=== PATIENT | female | born 1970 | race Caucasian/White ===

== ENCOUNTER → 2017-03-07 | Outpatient (CLI) | payer BC ==
--- NOTE | 2017-03-07 16:14 | MY ---
EXAMINATION: Bilateral digital mammography utilizing CAD. HISTORY: Screening exam. Comparison is made to previous studies dated 11/10/2015, 10/31/2014. FINDINGS: Bilateral extremely dense breast tissue. No suspicious calcifications, masses or marcello ectural distortions. No pathologic appearing lymph nodes, no abnormal skin thickening or nipple in version. CAD highlighted regions appear normal at this time. IMPRESSION: BI-RADS category I - negative mammogram. Continued screening according to ACR-ACS gu idelines suggested. THE FALSE-NEGATIVE RATE OF MAMMOGRAM IS APPROXIMATELY 10%. MANAGEMENT OF A PALPABLE ABNORMALITY MUST BE BASED UPON CLINICAL GROUNDS. SENSITIVITY FOR DETECTION OF ABNORMALITIES IN DENSE BREASTS IS LOW. NOTE: A letter will be sent to the patient regarding findings. [facility] -- JOSEFINA Stevens [phone] - FAX [phone]
== END ==
LOC: MW.MAM 09:00
PROVIDERS: ATTEND Obstetrics & Gynecology
DX: Z12.31 Encounter for screening mammogram for malignant neoplasm of breast (principal)
CPT/HCPCS: G0202; G0202-26

== ENCOUNTER 2017-04-04 07:44 | Day surgery (SDC) | payer BC ==
[2017-04-03 12:38] LABS: CHLORIDE,CL 106 mmol/L (98-110); SODIUM,NA 140 mmol/L (136-146)
[~2017-04-04 07:44] MED LIST: Bupivacaine 0.25% 10 ML SDV ONE; Fluorescein 5 ML Vial ONE; Lidocaine 2% 5 ML SDV ONE; Methylene Blue 50 MG/10 ML Ampule IV ONE; Midazolam 1 MG/ML 2 ML SDV ONE; Neostigmine Methylsulfate 1 MG/ML 5 ML Syringe ONE; Ondansetron 4 MG/2 ML SDV ONE; Propofol 200 MG/20 ML SDV ONE; Sodium Chloride 0.9% 20 ML ONE; fentaNYL 250 MCG/5 ML SDV ONE
--- NOTE | 2017-04-04 08:17 | PCM.PREANE ---
Preanesthetic Assessment - Anesthesia/Transfusion/Family Hx Anesthesia History: Prior Anesthesia Without Reaction Family History of Anesthesia Reaction: No Transfusion History: Prior Transfusion Without Reaction Intubation History: Unknown - Review of Systems General: No Symptoms Pulmonary: No Symptoms Cardiovascular: No Symptoms Gastrointestinal: No symptoms Neurological: No Symptoms Other: Reports: None - Physical Assessment O2 Sat by Pulse Oximetry: 99 Respiratory Rate: 16 Vital Signs: Last Vital Signs Temp 36.3 C 04/04/17 07:54 Pulse 90 04/04/17 07:54 Resp 16 04/04/17 07:54 BP 133/80 04/04/17 07:54 Pulse Ox 99 04/04/17 07:54 Height: 1.64 m Weight: 79.832 kg ASA Class: 2 Mental Status: Alert & Oriented x3 Airway Class: Mallampati = 2 Dentition: Reports: Normal Dentition Thyro-Mental Finger Breadths: 3 Mouth Opening Finger Breadths: 2 ROM/Head Extension: Full Lungs: Clear to auscultation, Normal respiratory effort Cardiovascular: Regular Rate, Regular Rhythm - Lab Values: Laboratory Last Values WBC 6.46 K/uL (4.0-11.0) 04/03/17 12:04 RBC 4.34 M/uL (4.30-5.90) 04/03/17 12:04 Hgb 12.9 g/dL (12.0-16.0) 04/03/17 12:04 Hct 39.9 % (36.0-46.0) 04/03/17 12:04 MCV 91.9 fL (80.0-98.0) 04/03/17 12:04 MCH 29.7 pg (27.0-32.0) 04/03/17 12:04 MCHC 32.3 g/dL (31.0-37.0) 04/03/17 12:04 RDW Std Deviation 50.5 fl (28.0-62.0) 04/03/17 12:04 RDW Coeff of Lela 15 % (11.0-15.0) 04/03/17 12:04 Plt Count 224 K/uL (150-400) 04/03/17 12:04 MPV 10.00 fL (7.40-12.00) 04/03/17 12:04 Nucleated RBC % 0.0 /100WBC 04/03/17 12:04 Nucleated RBCs # 0 K/uL 04/03/17 12:04 Sodium 140 mmol/L (136-146) 04/03/17 12:04 Potassium 4.4 mmol/L (3.5-5.1) 04/03/17 12:04 Chloride 106 mmol/L (98-110) 04/03/17 12:04 Carbon Dioxide 26 mmol/L (21-31) 04/03/17 12:04 BUN 10 mg/dL (6.0-23.0) 04/03/17 12:04 Creatinine 0.8 mg/dL (0.6-1.5) 04/03/17 12:04 Est Cr Clr Drug Dosing 77.47 mL/min 04/03/17 12:04 Estimated GFR (MDRD) > 60.0 ml/min 04/03/17 12:04 Glucose 84 mg/dL (60-110) 04/03/17 12:04 Calcium 8.8 mg/dL (8.8-10.8) 04/03/17 12:04 HCG, Quant < 1.2 mIU/mL 04/03/17 12:04 Blood Type B NEGATIVE 04/03/17 12:04 Antibody Screen NEGATIVE 04/03/17 12:04 - Allergies Allergies/Adverse Reactions: Allergies Allergy/AdvReac Type Severity Reaction Status Date / Time latex Allergy Rash Verified 03/30/17 15:48 baby wipes Allergy Rash Uncoded 03/30/17 15:48 - Blood Blood Available: No - Anesthesia Plan Pre-Op Medication Ordered: None - Acknowledgements Anesthesia Type Planned: General Anesthesia Pt an Appropriate Candidate for the Planned Anesthesia: Yes Alternatives and Risks of Anesthesia Discussed w Pt/Guardian: Yes Pt/Guardian Understands and Agrees with Anesthesia Plan: Yes PreAnesthesia Questionnaire HEENT History: Reports: Other (See Below) Other HEENT History: wears glasses, has Keratconus Cardiovascular History: Reports: High Cholesterol, Hypertension Respiratory History: Reports: None Gastrointestinal History: Reports: Hemorrhoids Genitourinary History: Reports: Other (See Below) Other Genitourinary History: has overactive bladder [employer] History: Reports: Dysfunctional Uterine Bleeding, Endometrial Ablation, Endometriosis Musculoskeletal History: Reports: Other (See Below) Other Musculoskeletal History: chronic right hip pain Neurological History: Reports: None Psychiatric History: Reports: Anxiety, Depression Endocrine/Metabolic History: Reports: None Hematologic History: Reports: Anemia Immunologic History: Reports: None Oncologic (Cancer) History: Reports: None Dermatologic History: Reports: Other (See Below) Other Dermatologic History: occasional rash in antecubital area - Past Surgical History Head Surgeries/Procedures: Reports: None HEENT Surgical History: Reports: None Cardiovascular Surgical History: Reports: None Respiratory Surgical History: Reports: None GI Surgical History: Reports: None Female Surgical History: Reports: Section (x2), Cervical Conization , Endometrial Ablation, Tubal Ligation, Other (See Below) Other Female Surgeries/Procedures: laparoscopy for ablation of endometrosis Endocrine Surgical History: Reports: None Neurological Surgical History: Reports: None Dermatological Surgical History: Reports: None Other Surgical History Comment: rt.CTR - SUBSTANCE USE Smoking Status *Q: Never Smoker Recreational Drug Use History: No - HOME MEDS Home Medications: Home Meds Ferrous Sulfate 325 mg PO BID 03/30/17 [History] Tolterodine Tartrate [Tolterodine Tartrate ER] 4 mg PO DAILY 03/30/17 [History] Venlafaxine [Effexor XR] 225 mg PO DAILY 03/30/17 [History] amLODIPine [Norvasc] 5 mg PO DAILY 03/30/17 [History] atorvaSTATin Calcium [Atorvastatin Calcium] 80 mg PO DAILY 03/30/17 [History] valACYclovir [Valtrex] 1 gm PO Q8H PRN 03/30/17 [History] - CURRENT (IN HOUSE) MEDS Current Meds: Current Medications Discontinued Medications Bupivacaine HCl (Sensorcaine-Mpf 0.25%) Confirm Administered Dose 20 ml .ROUTE .STK-MED ONE Stop: 04/04/17 07:18 Fentanyl (Sublimaze) Confirm Administered Dose 250 mcg .ROUTE .STK-MED ONE Stop: 04/04/17 07:16 Fluorescein Sodium (Ak-Fluor) Confirm Administered Dose 5 ml .ROUTE .STK-MED ONE Stop: 04/04/17 07:19 Glycopyrrolate () Confirm Administered Dose 1 mg .ROUTE .STK-MED ONE Stop: 04/04/17 07:15 Sodium Chloride (Normal Saline) Confirm Administered Dose 20 mls @ as directed .ROUTE .STK-MED ONE Stop: 04/04/17 07:17 Lidocaine (Xylocaine-Mpf 2%) Confirm Administered Dose 5 ml .ROUTE .STK-MED ONE Stop: 04/04/17 07:15 Methylene Blue (Provayblue) Confirm Administered Dose 50 mg IV .STK-MED ONE Stop: 04/04/17 07:19 Midazolam HCl (Versed 1 Mg/Ml) Confirm Administered Dose 2 mg .ROUTE .STK-MED ONE Stop: 04/04/17 07:16 Neostigmine Methylsulfate (Neostigmine) Confirm Administered Dose 5 mg .ROUTE .STK-MED ONE Stop: 04/04/17 07:15 Ondansetron HCl (Zofran) Confirm Administered Dose 4 mg .ROUTE .STK-MED ONE Stop: 04/04/17 07:15 Propofol (Diprivan 20 Ml) Confirm Administered Dose 200 mg .ROUTE .STK-MED ONE Stop: 04/04/17 07:16 Vecuronium [place] (Vecuronium) Confirm Administered Dose 10 mg .ROUTE .STK-MED ONE Stop: 04/04/17 07:17
[2017-04-04] MEDS ORDERED: ceFAZolin 1 GM Vial ONE (09:34)
[2017-04-04] MEDS ORDERED: ePHEDrine 50 MG/ML SDV ONE (09:39)
[2017-04-04] MEDS ORDERED: Phenylephrine/Normal Saline 100 MCG/ML 10 ML Syringe ONE (09:43)
[2017-04-04] MEDS ORDERED: Furosemide 40 MG/4 ML VIAL ONE (10:04)
[2017-04-04] MEDS ORDERED: fentaNYL 100 MCG/2 ML SDV IVPUSH PRN (10:15)
[2017-04-04] MEDS ORDERED: fentaNYL 250 MCG/5 ML SDV ONE (10:29)
[2017-04-04] MEDS ORDERED: Morphine 2 MG/ML Syringe IVPUSH PRN (11:50)
[2017-04-04] MEDS ORDERED: Ketorolac 30 MG/ML SDV IVPUSH PRN (11:50)
[2017-04-04] MEDS ORDERED: Ondansetron 4 MG/2 ML SDV IVPUSH PRN (11:50)
[2017-04-04] MEDS ORDERED: Acetaminophen/oxyCODONE 325-5 MG Tab PO PRN ×2 (11:50)
[2017-04-04] MEDS ORDERED: Morphine 4 MG/ML Syringe IVPUSH PRN (11:50)
[2017-04-04] MEDS ORDERED: Ketorolac 30 MG/ML SDV IVPUSH ONE (11:50)
[2017-04-04] MEDS ORDERED: Promethazine 25 MG/ML SDV IM PRN (11:50)
--- NOTE | 2017-04-04 12:06 | PCM.OPNOTE ---
- General Post-Op/Procedure Note Date of Surgery/Procedure: 04/04/17 Operative Procedure(s): LAVH/bilateral salpingectomy/cystoscopy Pre Op Diagnosis: menometrorrhagia. uterine fibroids Post-Op Diagnosis: Same Anesthesia Technique: General ET tube Primary Surgeon: Argenis Fish Section Gang Worker: Cornelia Matos Fluid Replacement, Intraop: 2,500 EBL in mLs: 150 Complications: None Condition: Good Free Text/Narrative:: Dictation [id number]
--- NOTE | 2017-04-04 16:51 | PCM48HPAN ---
Post Anesthesia Note - EVALUATION WITHIN 48HRS OF ANESTHETIC Vital Signs in Normal Range: Yes Patient Participated in Evaluation: Yes Respiratory Function Stable: Yes Airway Patent: Yes Cardiovascular Function Stable: Yes Hydration Status Stable: Yes Pain Control Satisfactory: Yes Nausea and Vomiting Control Satisfactory: Yes Mental Status Recovered: Yes
--- NOTE | 2017-04-04 17:31 | PCM.SN ---
- Free Text/Narrative Note: Patient is sleepy, but pain is controlled. Denies nausea. Explained intraoperative findings and procedure. VS are stable. Continue postoperative cares.
[2017-04-05 05:27] LABS: CHLORIDE,CL 103 mmol/L (98-110); SODIUM,NA 138 mmol/L (136-146)
--- NOTE | 2017-04-05 07:02 | PCM.SURGPN ---
- General Info Date of Service: 04/05/17 POD#: 1 Functional Status: Reports: pain controlled, tolerating diet, ambulating - Review of Systems General: Denies: Fever, Weakness Pulmonary: Denies: shortness of breath Cardiovascular: Denies: Chest Pain, Palpitations, Lightheadedness Gastrointestinal: Denies: Nausea, Vomiting Genitourinary: Denies: flank pain Skin: Reports: no symptoms Psychiatric: Reports: no symptoms - Patient Data Vitals - most recent: Last Vital Signs Temp 36.4 C 04/05/17 04:00 Pulse 85 04/05/17 04:00 Resp 18 04/05/17 04:00 BP 122/64 04/05/17 04:00 Pulse Ox 92 L 04/05/17 04:00 Weight - most recent: 80 kg I&O - last 24 hours: Intake & Output 04/04/17 04/04/17 04/05/17 14:59 22:59 06:59 Intake Total 5300 300 1318 Output Total 240 223 4095 Balance 5120 -150 128 Lab Results last 24 hrs: Laboratory Results - last 24 hr 04/05/17 04/05/17 Range/Units 04:29 04:29 WBC 10.32 (4.0-11.0) K/uL RBC 3.81 L (4.30-5.90) M/uL Hgb 11.2 L (12.0-16.0) g/dL Hct 35.3 L (36.0-46.0) % MCV 92.7 (80.0-98.0) fL MCH 29.4 (27.0-32.0) pg MCHC 31.7 (31.0-37.0) g/dL RDW Std Deviation 51.2 (28.0-62.0) fl RDW Coeff of Lela 15 (11.0-15.0) % Plt Count 201 (150-400) K/uL MPV 10.20 (7.40-12.00) fL Neut % (Auto) 83.4 H (48.0-80.0) % Lymph % (Auto) 9.9 L (16.0-40.0) % [place] % (Auto) 6.3 (0.0-15.0) % Eos % (Auto) 0.3 (0.0-7.0) % Baso % (Auto) 0.1 (0.0-1.5) % Neut # (Auto) 8.6 H (1.4-5.7) K/uL Lymph # (Auto) 1.0 (0.6-2.4) K/uL [place] # (Auto) 0.7 (0.0-0.8) K/uL Eos # (Auto) 0.0 (0.0-0.7) K/uL Baso # (Auto) 0.0 (0.0-0.1) K/uL Nucleated RBC % 0.0 /100WBC Nucleated RBCs # 0 K/uL Sodium 138 (136-146) mmol/L Potassium 4.7 (3.5-5.1) mmol/L Chloride 103 (98-110) mmol/L Carbon Dioxide 27 (21-31) mmol/L BUN 11 (6.0-23.0) mg/dL Creatinine 0.8 (0.6-1.5) mg/dL Est Cr Clr Drug Dosing 79.07 mL/min Estimated GFR (MDRD) > 60.0 ml/min Glucose 122 H (60-110) mg/dL Calcium 8.2 L (8.8-10.8) mg/dL Med Orders - Current: Current Medications Fentanyl (Sublimaze) 50 mcg IVPUSH Q5M PRN PRN Reason: Pain (severe 7-10) Stop: 04/05/17 10:15 Ketorolac Tromethamine (Toradol) 30 mg IVPUSH Q6H PRN PRN Reason: Pain (severe 7-10) Stop: 04/09/17 11:50 Morphine Sulfate (Morphine) 2 mg IVPUSH Q2H PRN PRN Reason: Pain (severe 7-10) Last Admin: 04/04/17 14:11 Dose: 2 mg Morphine Sulfate (Morphine) 4 mg IVPUSH Q2H PRN PRN Reason: Pain (severe 7-10) Last Admin: 04/04/17 15:36 Dose: 4 mg Ondansetron HCl (Zofran) 4 mg IVPUSH Q6H PRN PRN Reason: Nausea/Vomiting Oxycodone/Acetaminophen (Percocet 325-5 Mg) 1 tab PO Q4H PRN PRN Reason: Pain (moderate 4-6) Last Admin: 04/04/17 20:41 Dose: 1 tab Oxycodone/Acetaminophen (Percocet 325-5 Mg) 2 tab PO Q4H PRN PRN Reason: Pain (moderate 4-6) Last Admin: 04/05/17 01:40 Dose: 2 tab Promethazine HCl (Phenergan) 25 mg IM Q6H PRN PRN Reason: Nausea/Vomiting Discontinued Medications Bupivacaine HCl (Sensorcaine-Mpf 0.25%) Confirm Administered Dose 20 ml .ROUTE .STK-MED ONE Stop: 04/04/17 07:18 Cefazolin Sodium (Ancef) Confirm Administered Dose 2 gm .ROUTE .STK-MED ONE Stop: 04/04/17 09:35 Ephedrine Sulfate (Ephedrine Sulfate) Confirm Administered Dose 50 mg .ROUTE .STK-MED ONE Stop: 04/04/17 09:40 Fentanyl (Sublimaze) Confirm Administered Dose 250 mcg .ROUTE .STK-MED ONE Stop: 04/04/17 07:16 Fentanyl (Sublimaze) Confirm Administered Dose 250 mcg .ROUTE .STK-MED ONE Stop: 04/04/17 10:30 Fluorescein Sodium (Ak-Fluor) Confirm Administered Dose 5 ml .ROUTE .STK-MED ONE Stop: 04/04/17 07:19 Furosemide (Lasix) Confirm Administered Dose 40 mg .ROUTE .STK-MED ONE Stop: 04/04/17 10:05 Glycopyrrolate () Confirm Administered Dose 1 mg .ROUTE .STK-MED ONE Stop: 04/04/17 07:15 Sodium Chloride (Normal Saline) Confirm Administered Dose 20 mls @ as directed .ROUTE .STK-MED ONE Stop: 04/04/17 07:17 Ketorolac Tromethamine (Toradol) 30 mg IVPUSH ONETIME ONE Stop: 04/04/17 11:51 Last Admin: 04/04/17 12:10 Dose: 30 mg Lidocaine (Xylocaine-Mpf 2%) Confirm Administered Dose 5 ml .ROUTE .STK-MED ONE Stop: 04/04/17 07:15 Methylene Blue (Provayblue) Confirm Administered Dose 50 mg IV .STK-MED ONE Stop: 04/04/17 07:19 Midazolam HCl (Versed 1 Mg/Ml) Confirm Administered Dose 2 mg .ROUTE .STK-MED ONE Stop: 06/13/17 07:16 Neostigmine Methylsulfate (Neostigmine) Confirm Administered Dose 5 mg .ROUTE .STK-MED ONE Stop: 04/04/17 07:15 Ondansetron HCl (Zofran) Confirm Administered Dose 4 mg .ROUTE .STK-MED ONE Stop: 04/04/17 07:15 Phenylephrine HCl (Phenylephrine In Ns 100 Mcg/Ml) Confirm Administered Dose 1 mg .ROUTE .STK-MED ONE Stop: 04/04/17 09:44 Propofol (Diprivan 20 Ml) Confirm Administered Dose 200 mg .ROUTE .STK-MED ONE Stop: 04/04/17 07:16 Vecuronium [place] (Vecuronium) Confirm Administered Dose 10 mg .ROUTE .STK-MED ONE Stop: 04/04/17 07:17 - Exam Wound/Incisions: healing well General: alert, oriented Lungs: Normal respiratory effort Cardiovascular: Regular Rate, Regular Rhythm Abdomen: bowel sounds present, soft. No: CVA tenderness Extremities: no calf tenderness Psy/Mental Status: alert, normal affect - Problem List & Annotations (1) Menometrorrhagia SNOMED Code(s): 710595048 Code(s): N92.1 - EXCESSIVE AND FREQUENT MENSTRUATION WITH IRREGULAR CYCLE Status: Acute Current Visit: Yes - Problem List Review Problem List Initiated/Reviewed/Updated: Yes - My Orders Last 24 Hours: Active Orders 24 hr Category Date Time Status Patient Status [ADT] Routine ADT 04/04/17 11:50 Active Antiembolic Devices [RC] PER UNIT ROUTINE Care 04/04/17 11:50 Active Bradycardia-Neuroaxis [employer] [RC] ROUTINE Care 04/04/17 10:15 Active Hypertension-Neuroaxis [employer] [RC] ROUTINE Care 04/04/17 10:15 Active Hypotension-Neuroaxis [employer] [RC] ROUTINE Care 04/04/17 10:15 Active May Shower [RC] ASDIRECTED Care 04/04/17 11:50 Active Notify Provider Intake and Out [RC] ASDIRECTED Care 04/04/17 11:50 Active Notify Provider Vital Signs [RC] ASDIRECTED Care 04/04/17 11:50 Active Oxygen Therapy [RC] ASDIRECTED Care 04/04/17 11:52 Active Pulse Oximetry [RC] PER UNIT ROUTINE Care 04/04/17 11:52 Active RT Incentive Spirometry [RC] Q2HWA Care 04/04/17 11:50 Active Up With Assistance [RC] PER UNIT ROUTINE Care 04/04/17 11:50 Active Up ad [place] [RC] PER UNIT ROUTINE Care 04/04/17 11:50 Active Vital Signs [RC] Q4H Care 04/04/17 11:50 Active Regular Diet [DIET] Diet 04/04/17 Lunch Active Acetaminophen/oxyCODONE [Percocet 325-5 MG] Med 04/04/17 11:50 Active 1 tab PO Q4H PRN Acetaminophen/oxyCODONE [Percocet 325-5 MG] Med 04/04/17 11:50 Active 2 tab PO Q4H PRN Ketorolac [Toradol] Med 04/04/17 11:50 Active 30 mg IVPUSH Q6H PRN Morphine Med 04/04/17 11:50 Active 2 mg IVPUSH Q2H PRN Morphine Med 04/04/17 11:50 Active 4 mg IVPUSH Q2H PRN Ondansetron [Zofran] Med 04/04/17 11:50 Active 4 mg IVPUSH Q6H PRN Promethazine [Phenergan] Med 04/04/17 11:50 Active 25 mg IM Q6H PRN fentaNYL [Sublimaze] Med 04/04/17 10:15 Active 50 mcg IVPUSH Q5M PRN Perineal Care [OM.PC] Per Unit Routine Oth 04/04/17 11:51 Ordered Peripheral IV Discontinue [OM.PC] Routine Oth 04/04/17 11:50 Ordered Sequential Compression Device [OM.PC] Per Unit Routine Oth 04/04/17 11:50 Ordered Resuscitation Status Routine Resus Stat 04/04/17 11:50 Ordered Medication Orders Fentanyl (Sublimaze) 50 mcg IVPUSH Q5M PRN PRN Reason: Pain (severe 7-10) Stop: 04/05/17 10:15 Ketorolac Tromethamine (Toradol) 30 mg IVPUSH Q6H PRN PRN Reason: Pain (severe 7-10) Stop: 04/09/17 11:50 Morphine Sulfate (Morphine) 2 mg IVPUSH Q2H PRN PRN Reason: Pain (severe 7-10) Last Admin: 04/04/17 14:11 Dose: 2 mg Morphine Sulfate (Morphine) 4 mg IVPUSH Q2H PRN PRN Reason: Pain (severe 7-10) Last Admin: 04/04/17 15:36 Dose: 4 mg Ondansetron HCl (Zofran) 4 mg IVPUSH Q6H PRN PRN Reason: Nausea/Vomiting Oxycodone/Acetaminophen (Percocet 325-5 Mg) 1 tab PO Q4H PRN PRN Reason: Pain (moderate 4-6) Last Admin: 04/04/17 20:41 Dose: 1 tab Oxycodone/Acetaminophen (Percocet 325-5 Mg) 2 tab PO Q4H PRN PRN Reason: Pain (moderate 4-6) Last Admin: 04/05/17 01:40 Dose: 2 tab Promethazine HCl (Phenergan) 25 mg IM Q6H PRN PRN Reason: Nausea/Vomiting - Assessment Assessment (Free Text/Narrative):: POD 1 status post LAVH/bilateral salpingectomy/cystoscopy - Plan Plan (Free Text/Narrative):: Doing well overall, discharge to home today after ambulates halls and voids. Discharge instructions reviewed. Infection and bleeding warnings reviewed. Follow up [facility] 2 and 6 weeks.
[2017-04-05 08:29] VITALS: BP 113/73
--- NOTE | 2017-04-05 09:11 | OR ---
SURGEON: Argenis Fish M.D. DATE OF PROCEDURE: 04/04/2017 PREOPERATIVE DIAGNOSES: 1. Menometrorrhagia. 2. Uterine fibroids. POSTOPERATIVE DIAGNOSES: 1. Menometrorrhagia. 2. Uterine fibroids. PROCEDURE: Laparoscopic-assisted vaginal hysterectomy, bilateral salpingectomy, cystoscopy. SURVEY QUESTIONNAIRE DESIGNER: Nancy Matos MD ESTIMATED BLOOD LOSS: 150 mL. ANESTHESIA: General endotracheal anesthesia. FLUIDS: 2500 mL of crystalloid. COMPLICATIONS: None known. FINDINGS: Enlarged approximately 12-week size uterus with fibroids, normal-appearing ovaries. Bilateral patent ureters. DISPOSITION: The patient to PACU, stable. PROCEDURE IN DETAIL: Rosemary is a 46-year-old female, who has ongoing difficulties with menometrorrhagia and known enlarged fibroid uterus. She would like to proceed with definitive intervention. She has had previous section, so does agree to proceed with laparoscopic assisted vaginal hysterectomy. She would like her tubes removed at the time of the procedure, but her ovaries to be retained as long as they appear normal. Risks of procedure were fully discussed. Proper consent was obtained. The patient was taken to the operating room, where she underwent general endotracheal anesthesia, was placed in modified dorsal lithotomy position. She was prepped and draped in the usual sterile fashion. SCDs to lower extremities. Kelly to gravity. Received Ancef 2 g prophylactically. A time-out was performed. Speculum was introduced in the vagina. Uterine HUMI manipulator was gently placed. Speculum was then removed. Gloves changed. Attention turned abdominally. Infraumbilically, 0.25% Marcaine was introduced. Please see nurse's notes for total amount of Marcaine dispensed during the procedure. The midline 5 mm skin incision was created infraumbilically. Anterior abdominal wall tented upward. A Veress needle was introduced. Saline hanging drop test was performed. Pneumoperitoneum was achieved. The Veress needle was removed followed by a 5 mm trocar and laparoscope introduced and peritoneal contents were identified. The right and left lower quadrant trocars were introduced under direct visualization after prepping the regions with 0.25% Marcaine, creating 5 mm skin incisions, and all trocars were introduced. Attention was now turned to mobilizing the uterus, which while it is large and bulky, it is fairly mobile. The ovaries appeared normal. The pelvic sidewalls were visualized. The ureters were seen peristalsing well away from operative field. The left fallopian tube was grasped and using LigaSure salpingectomy was performed up to the level of the cornua. At this juncture, I was able to secure the utero tubo-ovarian pedicle with LigaSure cauterized and transected. Pedicle incorporating the upper edge of the broad ligament and round ligament was able be secured, cauterized, and transected. The cornu was now grasped with an Allis clamp along the left side and was able to secure remainder of the pedicles down to the level of the cardinal ligament. At this point, I was able to dissect along the anterior uterovesical reflection and the bladder flap was created. Posteriorly, the remainder of the cardinal ligament pedicle was able to be secured, cauterized, and transected. In similar fashion, the patient's right salpingectomy was performed to the level of the cornua. The utero tubo-ovarian pedicle was able to be secured, transected, followed by the upper edge of the mid broad ligament with the round ligament, base of the broad ligament and cardinal ligament. The remainder of the bladder flap was able to be created along this side. The posterior remainder of the cardinal ligament, down to the level of uterosacral ligaments were able to be secured with LigaSure, cauterized, and transected. The bladder was more easily mobilized away from lower uterine segment and cervix. Hydrodissection was performed to further mobilize the bladder away from this region. A few areas of thicker adhesions were noted along the midline were now further dissected with LigaSure and transected allowing the bladder to be even more easily mobilized. At this point, I felt that adequate dissection had been performed at the level abdominally and junction to the level vaginally. The pneumoperitoneum was able to be released. Laparoscopic instruments were removed. Attention was turned vaginally. Hips were flexed, knees were flexed further. Weighted speculum was introduced into the vagina, anterior vaginal retractor. The cervix was grasped with Karis clamp, tented downwards. Cervix was circumscribed with Bovie cautery, anterior posteriorly. The overlying mucosa was dissected away from underlying peritoneum. Posteriorly, peritoneum was tented downward and entered sharply. A longer weighted speculum replaced with the shorter. Anteriorly, the bladder was mobilized away from the cervix, was not able to easily enter the bladder at this juncture, therefore initial pedicle including the uterosacral ligament was able to be secured on either side, transected, and suture ligated with 2-0 Vicryl. Further pedicle was able to be secured inside with Bob clamp, transected, and suture ligated. At this juncture, I was able to more easily palpate the peritoneum and was able to tent upward and enter into the anterior cul-de-sac. Anterior [place] was now replaced to mobilize the bladder away from the operative field. Remainder of right-sided pedicle was able to be secured, transected, and suture ligated. Two further pedicles were replaced, secured, and transected along the left side. At this juncture, the uterus was able to be removed, however, due to the bulkiness, did need to morcellate the uterus with the [place] blade. Three V - like sections of the cervix, uterus, followed by the mid lower uterine segment and fundal uterus was able be removed and then the remainder of the uterus was now able to be removed. This will be sent to Pathology for further analysis. The upper pedicles were closely inspected and found to be hemostatic. The uterosacral ligament was plicated to the vaginal apex on either side where pedicles were once again inspected and overall and found to be hemostatic except along the left side. There was one area of oozing just above the uterosacral ligament. This was secured with 2-0 Vicryl. Hemostasis thereafter evident. The cuff was now closed using 0 Vicryl in continuous running locked fashion. The cuff line was inspected and found to be hemostatic. Kelly balloon was desufflated and catheter was removed. The cystoscope was introduced into the bladder using normal saline as the distention media and having delivered IV fluorescein, was able to visualize the dome of the bladder, which appears intact. The trigone also appeared intact. The left ureteral orifice followed by the right ureteral orifice were able to be visualized after instilling approximately 400 mL of normal saline. Fluorescein dyed urine was seen streaming from both of them with good strong jets helping to ensure ureteral patency. No defects were seen along the bladder. The bladder is now drained. Kelly catheter was replaced. Vaginal cuff was inspected and found to be hemostatic. Gloves were changed. Attention was turned abdominally. The laparoscope was introduced once again after re-insufflating the abdominal cavity. The peritoneal contents are able to be identified. The bowel was mobilized away from the pelvis and the pedicles were closely inspected, well irrigated, and suctioned dried with sterile water. The pedicles appeared hemostatic. Relief pressure was decreased to 5 mmHg and the pedicle still appeared hemostatic. Therefore the pneumoperitoneum was released. The laparoscopic instruments were removed under direct visualization. The right and left trocars were removed under direct visualization. The laparoscope and infraumbilical trocar were removed after releasing much of the pneumoperitoneum as possible. The skin edges were now reapproximated using 3-0 Caprosyn in subcuticular fashion. Sponge, instrument, needle counts were correct x2. The patient has tolerated the procedure well. Overall, she will go to PACU in stable condition and specimens to pathology. ALANNAH / DAMIÁN /[id number] MTDGeorgiana
== END 2017-04-05 11:05 | disposition home or self-care (01) ==
LOC: MW.SDS 07:44 → MW.MS 14:10 → UNDOADMOB 14:10 → MW.MS 15:18 → MW.SDS 04-05 11:05
PROVIDERS: ATTEND Obstetrics & Gynecology
PROC: 0UT9FZZ Resection of Uterus, Via Natural or Artificial Opening With Percutaneous Endoscopic Assistance (ICD-10-PCS; principal; 2017-04-04)
PROC: 0UTC7ZZ Resection of Cervix, Via Natural or Artificial Opening (ICD-10-PCS; 2017-04-04)
PROC: 0UT7FZZ Resection of Bilateral Fallopian Tubes, Via Natural or Artificial Opening With Percutaneous Endoscopic Assistance (ICD-10-PCS; 2017-04-04)
DX: N92.1 Excessive and frequent menstruation with irregular cycle (principal); D25.9 Leiomyoma of uterus, unspecified; I10 Essential (primary) hypertension
CPT/HCPCS: 36415; 58554; 80048; 84702; 85025; 85027; 86850; 86900; 86901; A9270; J0690; J1885; J1940; J2250; J2270; J2405; J3010; Q9968; 00944; 88309; J2704

== ENCOUNTER 2025-04-24 08:47 | Day surgery (SDC) | payer BC ==
[~2025-04-24 08:47] MED LIST changes: -Bupivacaine 0.25% 10 ML SDV ONE; -Fluorescein 5 ML Vial ONE; -Lidocaine 2% 5 ML SDV ONE; -Methylene Blue 50 MG/10 ML Ampule IV ONE; -Midazolam 1 MG/ML 2 ML SDV ONE; -Neostigmine Methylsulfate 1 MG/ML 5 ML Syringe ONE; -Ondansetron 4 MG/2 ML SDV ONE; -Propofol 200 MG/20 ML SDV ONE; +Sodium Chloride 0.9% 10 ML Syringe FLUSH PRN; +Sodium Chloride 0.9% 2.5 ML Syringe FLUSH PRN; -Sodium Chloride 0.9% 20 ML ONE; -fentaNYL 250 MCG/5 ML SDV ONE
[2025-04-24] MEDS ORDERED: Propofol 200 MG/20 ML SDV ONE ×2 (08:57→09:50)
[2025-04-24] MEDS: Lactated Ringers 1,000 ML IV SCH (09:16)
[2025-04-24 13:37] VITALS: BP 132/72; PULSE 87
== END 2025-04-24 11:20 | disposition home or self-care (01) ==
LOC: MW.SDS 08:47
PROVIDERS: ATTEND Surgery
DX: Z12.11 Encounter for screening for malignant neoplasm of colon (principal); K64.3 Fourth degree hemorrhoids; I10 Essential (primary) hypertension; E78.00 Pure hypercholesterolemia, unspecified; E66.9 Obesity, unspecified; Z80.0 Family history of malignant neoplasm of digestive organs; Z91.040 Latex allergy status; Z79.899 Other long term (current) drug therapy; Z91.09 Other allergy status, other than to drugs and biological substances; Z68.30 Body mass index [BMI] 30.0-30.9, adult
CPT/HCPCS: 45378; J2003; J2704; J7120; 00812